=== PATIENT | male | born 1975 | race Caucasian/White ===

== ENCOUNTER 2017-04-05 21:42 | Emergency (ER) | payer SELFPAY ==
[2017-04-05 21:47] VITALS: BMI 26.3
--- NOTE | 2017-04-06 00:14 | PDOC ---
History of Present Illness - General Chief Complaint: Injury Stated Complaint: SIDE PAIN Time Seen by Provider: 04/05/17 23:05 - History of Present Illness Initial Comments: 04/06/17 00:08 CHIEF COMPLAINT: rib pain HISTORY OF PRESENT ILLNESS: 41 yo M with no significant PMH presents to ED with left rib pain s/p falling off ladder 5 days ago. Patient states he slipped down the ladder a little ways and then fell onto the ground. He denies any LOC, headache, dizziness, shortness of breath, palpitations, or chest pain. No recent travel or sick contacts. PAST MEDICAL HISTORY: Denies past medical history FAMILY HISTORY: Denies SOCIAL HISTORY: Denies tobacco, alcohol, illicit drug use. SURGICAL HISTORY: Denies ALLERGIES: No known drug allergies REVIEW OF SYSTEMS General/Constitutional: Denies fever or chills. Denies weakness, weight change. HEENT: Denies change in vision. Denies ear pain or discharge. Denies sore throat. Cardiovascular: Denies chest pain or shortness of breath. Respiratory: Denies cough, wheezing, or hemoptysis. Gastrointestinal: Denies nausea, vomiting, diarrhea or constipation. Denies rectal bleeding. Genitourinary: Denies dysuria, frequency, or change in urination. Musculoskeletal: "Pain to my left side." Skin and breasts: Denies rash or easy bruising. Neurologic: Denies headache, vertigo, loss of consciousness, or loss of sensation. PHYSICAL EXAM General Appearance: Well-appearing, appropriately dressed. No apparent distress , no intoxication. HEENT: EOMI, PERRLA, normal ENT inspection, normal voice, TMs normal, pharynx normal. No conjunctival pallor. No photophobia, scleral icterus. Neck: Supple. Trachea midline. No tenderness, rigidity, carotid bruit, stridor , lymphadenopathy, or thyromegaly. Respiratory/Chest: Lungs CTAB. Cardiovascular: RRR. S1, S2. Musculoskeletal/Extremities: Minimal tenderness on deep palpation to left lateral chest. Normal inspection. FROM of all extremities, normal capillary refill. Pelvis Stable. No CVA tenderness. No tenderness to extremities, pedal edema, swelling, erythema or deformity. Integumentary: Appropriate color, dry, warm. No cyanosis, erythema, jaundice or rash Neurologic: counseling program leader II-XII intact. Fully oriented, alert. Appropriate mood/affect. Motor strength 5/5. No appreciable EOM palsy, facial droop or sensory deficit. 04/06/17 00:43 Past History - Past Medical History Allergies/Adverse Reactions: Allergies Allergy/AdvReac Type Severity Reaction Status Date / Time No Known Allergies Allergy Verified 04/05/17 23:27 Home Medications: Ambulatory Orders Naproxen 250 mg PO BID #14 tablet 04/06/17 - Immunization History Immunization Up to Date: No - Psycho/Social/Smoking Cessation Hx Suicidal Ideation: No Smoking History: Current some day smoker Information on smoking cessation initiated: No *Physical Exam - Vital Signs Last Vital Signs Temp Pulse Resp BP Pulse Ox 98.2 F 76 16 125/85 100 04/05/17 21:46 04/05/17 21:46 04/05/17 21:46 04/05/17 21:46 04/05/17 23:02 Medical Decision Making - Medical Decision Making 04/06/17 00:44 41 yo M with no significant PMH presents to ED with left rib pain s/p falling off ladder 5 days ago. -Left rib x-ray X-ray negative for fracture. 30 mg IM Toradol rx for naproxen sent to pharm. advised patient to take meds as prescribed and f/u with PCP or ortho if symptoms persist. advised patient of signs and symptoms for return to ER, patient verbalized understanding and agrees to plan. *DC/Admit/Observation/Transfer Diagnosis at time of Disposition: Rib pain on left side - Discharge Dispostion Disposition: HOME Condition at time of disposition: Stable Admit: No - Prescriptions Prescriptions: Naproxen 250 mg PO BID #14 tablet - Referrals Referrals: Brown Moscoso MD [Staff Physician] - - Patient Instructions Printed Discharge Instructions: DI for Rib Contusion Additional Instructions: Please take medication as prescribed and follow up with your primary care doctor or orthopedics if symptoms persist(referral provided).If you experience shortness of breath, chest pain, difficulty breathing, palpitations, or any new or worsening symptoms, please return to the ER.
[2017-04-06] MEDS ORDERED: KETOROLAC TROMETHAMINE 30 MG/1 ML VIAL IM ONE (00:15)
[2017-04-06] MEDS ORDERED: KETOROLAC TROMETHAMINE 30 MG/1 ML VIAL ONE (00:30)
[2017-04-06 01:01] VITALS: BP 120/80; PULSE 74; TEMP 98
== END 2017-04-06 00:59 | disposition home or self-care (01) ==
LOC: JERFT 21:42 → JER 21:42
PROC: 3E0233Z Introduction of Anti-inflammatory into Muscle, Percutaneous Approach (ICD-10-PCS; principal; 2017-04-05)
DX: S20.211A Contusion of right front wall of thorax, initial encounter (principal); W11.XXXA Fall on and from ladder, initial encounter; Y93.89 Activity, other specified; Y92.89 Other specified places as the place of occurrence of the external cause
CPT/HCPCS: 71101-TC; 99282-25